=== PATIENT | female | born 1955 | race Caucasian/White ===

== ENCOUNTER 2020-02-06 15:56 | Inpatient (IN) | payer OTHER ==
[~2020-02-06] VITALS: Ht 165.1 cm; Wt 77.5 kg
[2020-02-06] MEDS ORDERED: PROPOFOL 10 MG/ML, 100ML IV ONE (16:25)
[2020-02-06] MEDS ORDERED: SUCCINYLCHOLINE 20 MG/ML, 10ML ONE (16:25)
[2020-02-06] MEDS ORDERED: ETOMIDATE 40 MG/20 ML ONE (16:25)
[2020-02-06] MEDS ORDERED: PROPOFOL 10 MG/ML, 20ML ONE (16:25)
--- NOTE | 2020-02-06 16:30 | NUR ---
LATE ENTRY: PLEASANT 64 FEMALE TRANSFERRED TO [facility] ED FROM [facility] FOR A POSITIVE COVID TEST AND INCREASED WOB/SOB/FEVER. PT ARRIVES TO [facility] ED ON A NON-REBREATHER MASK, WITH ADEQUATE OXYGEN SATURATION. VSS. PT DENIES MEDICAL HISTORY. FAREED JOHNSON, NOTIFIED OF PT CONDITION. BRANDY AT FOR PT HISTORY AND ASSESSMENT. PT EDUCATED ON ER PROCESS AND POC AND VERBALIZES UNDERSTANDING. CALL LIGHT IS WITHIN REACH OF PT AT THIS TIME. TECH PAGED FOR EKG OF PT.
--- NOTE | 2020-02-06 16:34 | NUR ---
XRAY AT AT THIS TIME.
[2020-02-06] MEDS ORDERED: CEFTRIAXONE PMX 1GM/50ML 50 ML ONE (16:43)
--- NOTE | 2020-02-06 16:51 | NUR ---
LAB AT TO DRAW BLOOD CULTURES X 2
[2020-02-06] MEDS ORDERED: AZITHROMYCIN 500 MG in SODIUM CHLORIDE 0.9% 250 ML IV SCH (17:00)
[2020-02-06] MEDS ORDERED: ONDANSETRON 2MG/ML, 2ML IVPush PRN (17:00)
[2020-02-06] MEDS ORDERED: LABETALOL 5MG/ML, 20ML IVPush PRN (17:00)
[2020-02-06] MEDS ORDERED: CEFTRIAXONE PMX 1GM/50ML 50 ML IV SCH (17:00)
[2020-02-06] MEDS ORDERED: BISACODYL 10 MG SUPP PR PRN (17:00)
[2020-02-06] MEDS ORDERED: ENALAPRILAT 1.25 MG/ML, 2ML IVPush PRN (17:00)
[2020-02-06] MEDS ORDERED: AZITHROMYCIN 500 MG in SODIUM CHLORIDE 0.9% 250 ML IV ONE (17:00)
[2020-02-06] MEDS ORDERED: POLYETHYLENE GLYCOL 17 GM PACKET PO PRN (17:00)
--- NOTE | 2020-02-06 17:08 | NUR ---
BC DRAWN X 2. IV ABX INITIATED PER MAR AT THIS TIME.
[2020-02-06 17:23] LABS: MEAN CORPUSCULAR HEMOGLOBIN 31.3 pg (27.0-34.8); MEAN CORPUSCULAR HGB CONC 33.3 g/dL (32.4-35.8); MEAN PLATELET VOLUME 8.3 fL (7.4-10.4); PLATELET COUNT 340 x10^3/uL (130-400); RED CELL DISTRIBUTION WIDTH 12.9 % (9.6-15.2)
--- NOTE | 2020-02-06 17:27 | NUR ---
PT RESTING IN [facility] AT THIS TIME WITH CALL LIGHT WITHIN REACH. PT IV ABX INFUSING PER MAR. PT DENIES ANY NEEDS AT THIS TIME.
[2020-02-06 17:32] LABS: MD YES
[2020-02-06 17:34] LABS: ALBUMIN 2.4 g/dL (3.4-5.0); ANION GAP 22 mmol/L (5-15); CALCIUM 9.2 mg/dL (8.5-10.1); CHLORIDE 94 mmol/L (98-107)
[2020-02-06 17:39] LABS: ALANINE AMINOTRANSFERASE 16 U/L (12-78); ALKALINE PHOSPHATASE 86 U/L (45-117); BILIRUBIN,TOTAL 0.7 mg/dL (0.2-1.0); CREATININE 0.76 mg/dL (0.55-1.02)
--- NOTE | 2020-02-06 17:40 | NUR ---
PT ASSISTED TO BSC AT THIS TIME.
--- NOTE | 2020-02-06 17:57 | NUR ---
DR HOOK NOTIFIED OF POTENTIAL NEED TO MOVE PT TO TRAUMA BAY FOR INTUBATION SECONDARY TO INCREASING WOB AND HYPOXIA. AWAITING RECOMMENDATIONS AT THIS TIME.
[2020-02-06] MEDS ORDERED: REMDESIVIR 200 MG in SODIUM CHLORIDE 0.9% 250 ML IVPB ONE (18:00)
[2020-02-06] MEDS ORDERED: CEFTRIAXONE PMX 1GM/50ML 50 ML IVPB ONE (18:00)
--- NOTE | 2020-02-06 18:03 | NUR ---
SPOKE WITH PHYSICIAN GENERAL INTERNAL MEDICINE DARRION Carrillo AND CHARGE TYLER ABOUT NEED TO MOVE PT TO INTUBATION ROOM. TRANSPORTING PT TO ROOM 39 FOR CENTRAL LINE PLACEMENT AND RSI.
[2020-02-06 18:13] LABS: BAND#(MANUAL) 1.88 x10^3/uL; BANDS%(MANUAL) 8 % (0-7); LYMPH#(MANUAL) 1.18 x10^3/uL (1-3.4); LYMPHS% (MANUAL) 5 % (22-44); MONOS#(MANUAL) 0.24 x10^3/uL (0.3-2.7); MONOS% (MANUAL) 1 % (2-9); SEG#(MANUAL) 20.21 x10^3/uL (1.8-6.8); SEGS% (MANUAL) 86 % (42-75)
[2020-02-06 18:14] LABS: <PLATELET ESTIMATE> ADEQUATE; <PLT MORPHOLOGY> NORMAL PLT MORPH; <RBC MORPHOLOGY> NORMAL; PMNS WITH VACUOLES 1+
[2020-02-06] MEDS ORDERED: ONDANSETRON 2MG/ML, 2ML ONE (19:15)
[2020-02-06] MEDS ORDERED: ONDANSETRON 2MG/ML, 2ML IVPush ONE (19:30)
[2020-02-06] MEDS ORDERED: ETOMIDATE 40 MG/20 ML IVPush ONE (19:30)
[2020-02-06] MEDS ORDERED: SUCCINYLCHOLINE 20 MG/ML, 10ML IVPush ONE (19:30)
[2020-02-06] MEDS ORDERED: PROPOFOL 100 ML IV PRN (19:30)
[2020-02-06] MEDS ORDERED: PROPOFOL 10 MG/ML, 20ML IVPush ONE (19:30)
--- NOTE | 2020-02-06 19:31 | NUR ---
LATE ENTRY: AT 1830 PT WAS MOVED FROM ED ROOM 26 TO ER ROOM 39 FOR CVC PLACEMENT AND INTUBATION. DR HOOK IS AT BS WITH CENTRAL LINE CART AND RSI KIT, ALONG WITH RT. CONSENT OBTAINED FOR PROCEDURE, AND PT VERBALIZES UNDERSTANDING OF NEED FOR VENTILATOR FOR RESPIRATORY ASSISTANCE. PT WAS INTUBATED WITH 20 MG OF ETOMIDATE AND 100 MG OF SUCC. PT WAS INTUBATED WITH GLIDESCOPE WITH 8.0 ET TUBE PLACED AT 21 CM AT THE LIP. LUNGS AUSCULTATED AND BREATH SOUNDS WERE CLEAR WITH EQUAL BILATERAL RISE AND FALL OF CHEST NOTED. A 16 THAI NG TUBE WAS PLACED AND ATTACHED TO STOMACH TO ASPIRATE STOMACH CONTENTS. PT ALSO RECEIVED 60 PROPOFOL IV PUSH OVER TWO SEPARATE BOLUSES FOR SEDATION. SOFT WRIST RESTRAINTS WERE APPLIED BILATERALLY FOR PT AND STAFF SAFETY. CASEY CATHETER WAS INSERTED PER UNIT POLICY WITH COLIN MONTESINOS AT BS TO VISUALIZE THAT THIS RN MAINTAINED STERILE FIELD. PT ATTACHED TO TEMPERATURE PROBE AT THIS TIME AND PT TEMP WAS PROVIDED FOR LAB. REPORT OF PT GIVEN TO COLIN MONTESINOS WHO IS ASSUMING CARE OF PT AT THIS TIME. XRAY AT BS FOR VISUAL VERIFICATION OF CORRECT CENTRAL LINE PLACEMENT.
[2020-02-06] MEDS ORDERED: DEXAMETHASONE 4 MG TABLET PO ONE (19:44)
--- NOTE | 2020-02-06 19:54 | NUR ---
LATE ENTRY D/T PT CARE: BEDSIDE REPORT FROM ROOSEVELT Greene RN. DR HOOK AT BEDSIDE PLACING R IJ TRIPLE LUMEN CENTRAL LINE. PT CURRENTLY SEDATED WITH PROPOFOL TO AFFECT. XRAY CONFIRMATION OBTAINED PRIOR TO USE OF CENTRAL LINE. NG PLACED IN L NARE. PLACEMENT CONFIRMED BY AUSCULTATION, ASPIRATION AND XRAY. ADDITIONAL PIV ACCESS OBTAINED. CASEY PLACED W GOOD UO; URINE YELLOW, NO SEDAMENT. CORE TMAX 100.2 WILL CONTINUE TO MONITOR. LAST TYLENOL SPEECH WRITER PER REPORT. SOFT RESTRAINTS PER ORDER. ABX INFUSED. NO S/S OF ABX RXN AT THIS TIME.
[2020-02-06] MEDS ORDERED: LIDOCAINE-MPF 1%, 2ML ENDO PRN (20:00)
[2020-02-06] MEDS ORDERED: PHARMACY MAY ADJ FOR RENAL FX MC SCH (20:00)
[2020-02-06] MEDS: PROPOFOL 100 ML IV PRN (20:01)
[2020-02-06] MEDS ORDERED: FENTANYL PF 100 MCG/2ML ONE ×2 (20:10→22:06)
[2020-02-06] MEDS: FENTANYL PF 100 MCG/2ML IVPush PRN ×2 (20:14→22:08)
--- NOTE | 2020-02-06 20:17 | NUR ---
PT MEDICATED WITH FENTANYL FOR AGITATION. PROPOFOL TITRATED FOR AFFECT
[2020-02-06] MEDS: DEXAMETHASONE 4 MG/ML, 1ML IV SCH ×2 (21:00→23:21)
--- NOTE | 2020-02-06 21:32 | NUR ---
DAUGHTER BIN AND SON BRANDY CALLED ED FOR UPDATE. UPDATED WITH GENERAL STATUS. DAUGHTER STATES THAT SHE WILL BE DRIVING TO [facility] TOMORROW. DAUGHTER AWARE THAT VISITORS ARE NOT ALLOWED ON COVID FLOOR AND DEMONSTRATES UNDERSTANDING. VSS. PT MOVING ALL EXTREMITIES INDEPENDENTLY, NO SPONTANEOUS EYE OPENING NOTED.
[2020-02-06] MEDS ORDERED: PROPOFOL 100 ML IV ONE (22:06)
--- NOTE | 2020-02-06 22:13 | NUR ---
PT PRE MEDICATED WITH FENTANYL PRIOR TO ORAL CARE. VSS.
[2020-02-06 22:54] LABS: MICROSCOPIC AUTO
--- NOTE | 2020-02-06 23:00 | NUR ---
HOSPITAL BED REQUESTED
[2020-02-06] MEDS ORDERED: DEXAMETHASONE 4 MG/ML, 1ML ONE (23:18)
[2020-02-06] MEDS ORDERED: FAMOTIDINE 20 MG/2 ML ONE (23:18)
[2020-02-06] MEDS: INSULIN LISPRO 100 UNITS/ML, PEN SQ-INSULIN SCH (23:20)
[2020-02-06] MEDS: FAMOTIDINE 20 MG/2 ML IVPush SCH (23:20)
[2020-02-06] MEDS ORDERED: ENOXAPARIN 80 MG/0.8 ML ONE (23:29)
[2020-02-06] MEDS: ENOXAPARIN 80 MG/0.8 ML SQ SCH (23:29)
--- NOTE | 2020-02-06 23:30 | NUR ---
PT MEDICATED PER EMAR. FSBS 429. PT MEDICATED PER PROTOCOL. LAB VERIFICATION OF BG ORDERED.
--- NOTE | 2020-02-07 00:50 | NUR ---
MESSAGE LEFT ON DR BOYD'S PHONE REGARDING FSBS. BG IMPROVED TO 405 ~30MIN POST INSULIN SQ INJECTION
[2020-02-07] MEDS ORDERED: FENTANYL PF 100 MCG/2ML ONE (01:14)
--- NOTE | 2020-02-07 01:30 | NUR ---
assumed care of pt. report from Sandra SHAW pt is currenty and ICU admission - HOLD pt was transfered here from outlying facility for increasing SOB D/T COVID +. pt has been intubated since admit and is currently sedated. pt has been trans[facility] to hospital bed with waffle mattress overlay pt is currenty sedated and resting calmly ST on monitor. no murmur noted on auscultation vent settings: A/C, rate 16, tidal Volume 500, PEEP of 5, O2 at 100% R lung coarse, L lung diminished. difficult to auscultate D/T body habitus active BS x4 quadrants. pt has NG tube in place to LCS with small amount of brown output cosme in place to drainage skin pale and intermittent diaphoresis, intact. no open wounds noted bilateral wrist restraints in place for safety. no family at bedside. lights dimmed for comfort
--- NOTE | 2020-02-07 01:55 | NUR ---
PT TRANSFERED TO HOSPITAL BED. REPORT TO COLIN MCCORMACK AND COLIN BELTRÁN.
[2020-02-07] MEDS: FENTANYL PF 100 MCG/2ML IVPush PRN (01:56)
--- NOTE | 2020-02-07 02:30 | NUR ---
no changes. pt resting in no apparent distress. awaiting bed assignment
--- NOTE | 2020-02-07 03:11 | NUR ---
PER DR BOYD, NO CTA AT THIS TIME. Addendum: 02/07/[address] BOYD AWARE OF FSBG AND CONFIRMS NO FURTHER ORDERS
--- NOTE | 2020-02-07 03:30 | NUR ---
pt positioning and turned for comfort. well tolerated. awaiting bed assignment
--- NOTE | 2020-02-07 04:40 | NUR ---
pt positioning for comfort. lights dimmed. sedation infusing. no apparent distress at this time
--- NOTE | 2020-02-07 05:30 | NUR ---
pt turned for positioning and comfort. resting calmly. no apaprnt distress noted at this time. awaiting bed assignment
[2020-02-07 05:53] LABS: D-DIMER 2.14 ug/mlFEU (0.00-0.52); INTERNATIONAL NORMALIZED RATIO 1.03 (0.93-1.1); PROTHROMBIN TIME 10.6 Seconds (9.6-11.5)
[2020-02-07 05:55] LABS: CALCIUM 9.3 mg/dL (8.5-10.1); CHLORIDE 100 mmol/L (98-107); MEAN CORPUSCULAR HEMOGLOBIN 31.7 pg (27.0-34.8); MEAN CORPUSCULAR HGB CONC 33.7 g/dL (32.4-35.8); MEAN PLATELET VOLUME 8.4 fL (7.4-10.4); PLATELET COUNT 300 x10^3/uL (130-400); RED BLOOD COUNT 4.97 x10^6/uL (3.82-5.3)
[2020-02-07 06:01] LABS: ALANINE AMINOTRANSFERASE 14 U/L (12-78); ALBUMIN 2.3 g/dL (3.4-5.0); ALKALINE PHOSPHATASE 82 U/L (45-117); ANION GAP 18 mmol/L (5-15); BILIRUBIN,TOTAL 0.5 mg/dL (0.2-1.0); CREATININE 0.77 mg/dL (0.55-1.02); TOTAL PROTEIN 7.6 g/dL (6.4-8.2)
--- NOTE | 2020-02-07 06:30 | NUR ---
pt has self-extubated. RT at bedside. BVM initiated. Dr. Larson notified and pt to be re-intubated
[2020-02-07 06:53] LABS: MD YES
[2020-02-07 06:54] LABS: BAND#(MANUAL) 1.57 x10^3/uL; BANDS%(MANUAL) 8 % (0-7); LYMPH#(MANUAL) 0.78 x10^3/uL (1-3.4); LYMPHS% (MANUAL) 4 % (22-44); MONOS#(MANUAL) 0.59 x10^3/uL (0.3-2.7); MONOS% (MANUAL) 3 % (2-9); SEG#(MANUAL) 16.66 x10^3/uL (1.8-6.8); SEGS% (MANUAL) 85 % (42-75)
[2020-02-07 06:55] LABS: <PLATELET ESTIMATE> ADEQUATE; <PLT MORPHOLOGY> NORMAL PLT MORPH; <RBC MORPHOLOGY> NORMAL; PMNS WITH VACUOLES 1+; TOXIC GRAN 1+
--- NOTE | 2020-02-07 07:00 | NUR ---
bedside report to Elvis SHAW. awaiting bed assignment
--- NOTE | 2020-02-07 08:34 | NUR ---
Note jose in EDM - 02/07/20 at 0835 by ROHINI TOOK REPORT AT 0700. CENTRAL LINE PUT IN BY MD KAUFMAN. 16 G OP PUT IN, ON LOW CONT SUCTION. 16 G CASEY PUT IN WITH 500 URINE OUT.
--- NOTE | 2020-02-07 08:36 | NUR ---
AT 0710 PT EXTUBATED HERSELF, RT IN ROOM WITH A BAG MASK. MD KAUFMAN NOTIFIED. 8.0 ET TUBE PUT IN. PT REPOSITIONED. RESTRAINTS ADJUSTED. PROPOFOL ADJUSTED PER MANDEEP.
[2020-02-07] MEDS: SENNA/DOCUSATE TABLET PO SCH (09:00)
[2020-02-07] MEDS: FAMOTIDINE 20 MG/2 ML IVPush SCH ×2 (09:00→21:30)
[2020-02-07] MEDS: CHOLECALCIFEROL 5,000u TAB PO SCH (09:00)
[2020-02-07] MEDS: ASCORBIC ACID 500 MG TABLET PO SCH ×3 (10:26→16:50)
[2020-02-07] MEDS: Enoxaparin 1 mg/kg protocol SQ SCH ×3 (10:26→17:00)
[2020-02-07] MEDS: ZINC SULFATE 220 MG CAPSULE PO SCH (10:27)
[2020-02-07] MEDS: DEXAMETHASONE 4 MG/ML, 1ML IV SCH (10:28)
[2020-02-07] MEDS: INSULIN LISPRO 100 UNITS/ML, PEN SQ-INSULIN SCH ×4 (10:29→21:39)
[2020-02-07] MEDS ORDERED: SUCCINYLCHOLINE 20 MG/ML, 10ML ONE (11:02)
[2020-02-07] MEDS ORDERED: ETOMIDATE 20 MG/10 ML ONE (11:02)
[2020-02-07] MEDS: FENTANYL PF 1,000 MCG in SODIUM CHLORIDE 0.9% 80 ML IV PRN (11:26)
[2020-02-07] MEDS: ENOXAPARIN 80 MG/0.8 ML SQ SCH ×2 (11:27→21:30)
[2020-02-07] MEDS: PROPOFOL 100 ML IV PRN ×3 (12:24→21:30)
[2020-02-07 12:49] VITALS: BP 130/78
[2020-02-07] MEDS: CEFTRIAXONE PMX 1GM/50ML 50 ML IV SCH (14:37)
[2020-02-07] MEDS: AZITHROMYCIN 500 MG in SODIUM CHLORIDE 0.9% 250 ML IV SCH (16:51)
[2020-02-07] MEDS: REMDESIVIR 100 MG in SODIUM CHLORIDE 0.9% 250 ML IVPB SCH (17:59)
[2020-02-07] MEDS: THIAMINE 100 MG in SODIUM CHLORIDE 0.9% 50 ML IV SCH (21:30)
[2020-02-08] MEDS: PROPOFOL 100 ML IV PRN ×5 (02:10→23:26)
[2020-02-08] MEDS: INSULIN LISPRO 100 UNITS/ML, PEN SQ-INSULIN SCH ×4 (03:38→20:25)
[2020-02-08 04:15] VITALS: BP 101/61
[2020-02-08 04:38] LABS: BASOPHILS % (AUTO) 1 % (0-1); EOSINOPHILS % (AUTO) 0 % (1-7); LYMPHOCYTES % (AUTO) 5 % (22-44); MEAN CORPUSCULAR HEMOGLOBIN 31.6 pg (27.0-34.8); MEAN CORPUSCULAR HGB CONC 33.7 g/dL (32.4-35.8); MEAN PLATELET VOLUME 8.3 fL (7.4-10.4); MONOCYTES % (AUTO) 4 % (2-9); NEUTROPHILS % (AUTO) 90 % (42-75); PLATELET COUNT 290 x10^3/uL (130-400); RED BLOOD COUNT 4.69 x10^6/uL (3.82-5.3); RED CELL DISTRIBUTION WIDTH 12.9 % (9.6-15.2)
[2020-02-08] MEDS: Enoxaparin 1 mg/kg protocol SQ SCH ×2 (05:00→16:08)
[2020-02-08 05:46] LABS: MD SCAN
[2020-02-08] MEDS: CHOLECALCIFEROL 5,000u TAB PO SCH (08:01)
[2020-02-08] MEDS: SENNA/DOCUSATE TABLET PO SCH (08:01)
[2020-02-08] MEDS: DEXAMETHASONE 4 MG/ML, 1ML IV SCH (08:01)
[2020-02-08] MEDS: ASCORBIC ACID 500 MG TABLET PO SCH ×2 (08:01→16:12)
[2020-02-08] MEDS: FAMOTIDINE 20 MG/2 ML IVPush SCH ×2 (08:01→20:24)
[2020-02-08] MEDS: ZINC SULFATE 220 MG CAPSULE PO SCH (08:01)
[2020-02-08 09:45] LABS: ALANINE AMINOTRANSFERASE 13 U/L (12-78); ANION GAP 8 mmol/L (5-15); CALCIUM 9.4 mg/dL (8.5-10.1); CHLORIDE 107 mmol/L (98-107); CREATININE 0.83 mg/dL (0.55-1.02)
[2020-02-08 09:48] LABS: ALKALINE PHOSPHATASE 76 U/L (45-117); BILIRUBIN,TOTAL 0.4 mg/dL (0.2-1.0)
[2020-02-08] MEDS: CEFTRIAXONE PMX 1GM/50ML 50 ML IV SCH (10:40)
[2020-02-08] MEDS: ENOXAPARIN 80 MG/0.8 ML SQ SCH ×2 (10:40→23:25)
[2020-02-08] MEDS: INSULIN GLARGINE 100 UNITS/ML, PEN SQ-INSULIN SCH ×2 (11:15→20:25)
[2020-02-08] MEDS: ACETAMINOPHEN 325 MG TABLET PO PRN (12:07)
[2020-02-08] MEDS: AZITHROMYCIN 500 MG in SODIUM CHLORIDE 0.9% 250 ML IV SCH (16:12)
[2020-02-08] MEDS: FENTANYL PF 1,000 MCG in SODIUM CHLORIDE 0.9% 80 ML IV PRN (17:42)
[2020-02-08] MEDS: REMDESIVIR 100 MG in SODIUM CHLORIDE 0.9% 250 ML IVPB SCH (17:42)
[2020-02-08] MEDS: THIAMINE 100 MG in SODIUM CHLORIDE 0.9% 50 ML IV SCH (20:24)
[2020-02-09 04:00] VITALS: BP 104/62
[2020-02-09] MEDS: INSULIN LISPRO 100 UNITS/ML, PEN SQ-INSULIN SCH ×4 (04:08→22:02)
[2020-02-09] MEDS: PROPOFOL 100 ML IV PRN ×5 (04:10→21:54)
[2020-02-09 04:45] LABS: BASOPHILS % (AUTO) 1 % (0-1); EOSINOPHILS % (AUTO) 0 % (1-7); LYMPHOCYTES % (AUTO) 10 % (22-44); MEAN CORPUSCULAR HGB CONC 32.8 g/dL (32.4-35.8); MEAN PLATELET VOLUME 8.9 fL (7.4-10.4); MONOCYTES % (AUTO) 9 % (2-9); NEUTROPHILS % (AUTO) 81 % (42-75); PLATELET COUNT 280 x10^3/uL (130-400); RED BLOOD COUNT 4.39 x10^6/uL (3.82-5.3); RED CELL DISTRIBUTION WIDTH 13.1 % (9.6-15.2)
[2020-02-09 04:49] LABS: MD NO
[2020-02-09 04:50] LABS: TRIGLYCERIDES 182 mg/dL (50-200)
[2020-02-09 04:54] LABS: D-DIMER 0.79 ug/mlFEU (0.00-0.52); INTERNATIONAL NORMALIZED RATIO 1.04 (0.93-1.1); PROTHROMBIN TIME 10.7 Seconds (9.6-11.5)
[2020-02-09] MEDS: Enoxaparin 1 mg/kg protocol SQ SCH (05:00)
[2020-02-09 05:06] LABS: C-REACTIVE PROTEIN, QUANT 8.33 mg/dL (0.02-0.49)
[2020-02-09] MEDS: CHOLECALCIFEROL 5,000u TAB PO SCH (08:02)
[2020-02-09] MEDS: ZINC SULFATE 220 MG CAPSULE PO SCH (08:02)
[2020-02-09] MEDS: ASCORBIC ACID 500 MG TABLET PO SCH ×2 (08:02→17:39)
[2020-02-09] MEDS: DEXAMETHASONE 4 MG/ML, 1ML IV SCH (08:02)
[2020-02-09] MEDS: FAMOTIDINE 20 MG/2 ML IVPush SCH ×2 (08:03→21:54)
[2020-02-09] MEDS: SENNA/DOCUSATE TABLET PO SCH (08:03)
[2020-02-09] MEDS: INSULIN GLARGINE 100 UNITS/ML, PEN SQ-INSULIN SCH ×2 (11:02→22:03)
[2020-02-09 11:24] LABS: ALANINE AMINOTRANSFERASE 12 U/L (12-78); ALBUMIN 1.9 g/dL (3.4-5.0); ANION GAP 6 mmol/L (5-15); CHLORIDE 109 mmol/L (98-107); CREATININE 0.64 mg/dL (0.55-1.02)
[2020-02-09 11:26] LABS: ALKALINE PHOSPHATASE 64 U/L (45-117); BILIRUBIN,TOTAL 0.4 mg/dL (0.2-1.0); TOTAL PROTEIN 6.8 g/dL (6.4-8.2)
[2020-02-09] MEDS: ENOXAPARIN 80 MG/0.8 ML SQ SCH (11:42)
[2020-02-09] MEDS: CEFTRIAXONE PMX 1GM/50ML 50 ML IV SCH (11:43)
[2020-02-09] MEDS: AZITHROMYCIN 500 MG in SODIUM CHLORIDE 0.9% 250 ML IV SCH (17:39)
[2020-02-09] MEDS: REMDESIVIR 100 MG in SODIUM CHLORIDE 0.9% 250 ML IVPB SCH (17:39)
[2020-02-09] MEDS: THIAMINE 100 MG in SODIUM CHLORIDE 0.9% 50 ML IV SCH (20:20)
[2020-02-10] MEDS: PROPOFOL 100 ML IV PRN ×4 (03:16→18:37)
[2020-02-10] MEDS: FENTANYL PF 1,000 MCG in SODIUM CHLORIDE 0.9% 80 ML IV PRN (03:16)
[2020-02-10 03:56] LABS: ALBUMIN 1.9 g/dL (3.4-5.0); ANION GAP 3 mmol/L (5-15); CALCIUM 8.7 mg/dL (8.5-10.1); CHLORIDE 110 mmol/L (98-107)
[2020-02-10 04:00] LABS: MEAN CORPUSCULAR HEMOGLOBIN 31.2 pg (27.0-34.8); MEAN PLATELET VOLUME 8.7 fL (7.4-10.4); PLATELET COUNT 309 x10^3/uL (130-400); RED BLOOD COUNT 4.38 x10^6/uL (3.82-5.3); RED CELL DISTRIBUTION WIDTH 13.1 % (9.6-15.2)
[2020-02-10 04:01] LABS: ALANINE AMINOTRANSFERASE 16 U/L (12-78); ALKALINE PHOSPHATASE 58 U/L (45-117); BILIRUBIN,TOTAL 0.4 mg/dL (0.2-1.0); TOTAL PROTEIN 6.8 g/dL (6.4-8.2)
[2020-02-10] MEDS: INSULIN LISPRO 100 UNITS/ML, PEN SQ-INSULIN SCH ×4 (04:09→20:03)
[2020-02-10 04:12] VITALS: BP 125/64
[2020-02-10 04:27] LABS: MD YES
[2020-02-10 04:29] LABS: BAND#(MANUAL) 0.11 x10^3/uL; BANDS%(MANUAL) 1 % (0-7); LYMPH#(MANUAL) 1.82 x10^3/uL (1-3.4); LYMPHS% (MANUAL) 17 % (22-44); MONOS#(MANUAL) 0.64 x10^3/uL (0.3-2.7); MONOS% (MANUAL) 6 % (2-9); MYELOCYTES# (MANUAL) 0.21 x10^3/uL (0-0); MYELOCYTES% (MANUAL) 2 % (0-0); SEG#(MANUAL) 7.92 x10^3/uL (1.8-6.8); SEGS% (MANUAL) 74 % (42-75)
[2020-02-10 04:30] LABS: <PLATELET ESTIMATE> ADEQUATE; <PLT MORPHOLOGY> NORMAL PLT MORPH; <RBC MORPHOLOGY> NORMAL
[2020-02-10] MEDS: SENNA/DOCUSATE TABLET PO SCH (09:26)
[2020-02-10] MEDS: ASCORBIC ACID 500 MG TABLET PO SCH ×2 (09:26→17:42)
[2020-02-10] MEDS: CHOLECALCIFEROL 5,000u TAB PO SCH (09:26)
[2020-02-10] MEDS: ENOXAPARIN 40 MG/0.4 ML SQ SCH (09:26)
[2020-02-10] MEDS: DEXAMETHASONE 4 MG/ML, 1ML IV SCH (09:26)
[2020-02-10] MEDS: ZINC SULFATE 220 MG CAPSULE PO SCH (09:26)
[2020-02-10] MEDS: FAMOTIDINE 20 MG/2 ML IVPush SCH ×2 (09:27→20:01)
[2020-02-10] MEDS: INSULIN GLARGINE 100 UNITS/ML, PEN SQ-INSULIN SCH ×2 (09:28→20:02)
[2020-02-10] MEDS: CEFTRIAXONE PMX 1GM/50ML 50 ML IV SCH (12:04)
[2020-02-10] MEDS: ACETAMINOPHEN 325 MG TABLET PO PRN (17:41)
[2020-02-10] MEDS: REMDESIVIR 100 MG in SODIUM CHLORIDE 0.9% 250 ML IVPB SCH (18:37)
[2020-02-10] MEDS: THIAMINE 100 MG in SODIUM CHLORIDE 0.9% 50 ML IV SCH (19:45)
[2020-02-11] MEDS: PROPOFOL 100 ML IV PRN ×3 (02:56→16:42)
[2020-02-11] MEDS: INSULIN LISPRO 100 UNITS/ML, PEN SQ-INSULIN SCH ×4 (02:57→20:24)
[2020-02-11 04:00] VITALS: BP 132/72
[2020-02-11 05:41] LABS: ALANINE AMINOTRANSFERASE 22 U/L (12-78); ALBUMIN 1.8 g/dL (3.4-5.0); CALCIUM 8.9 mg/dL (8.5-10.1); CREATININE 0.63 mg/dL (0.55-1.02)
[2020-02-11 05:43] LABS: ALKALINE PHOSPHATASE 62 U/L (45-117); BILIRUBIN,TOTAL 0.4 mg/dL (0.2-1.0); TOTAL PROTEIN 6.7 g/dL (6.4-8.2)
[2020-02-11 05:46] LABS: BASOPHILS % (AUTO) 1 % (0-1); EOSINOPHILS % (AUTO) 0 % (1-7); LYMPHOCYTES % (AUTO) 7 % (22-44); MEAN CORPUSCULAR HEMOGLOBIN 31.5 pg (27.0-34.8); MEAN PLATELET VOLUME 8.6 fL (7.4-10.4); MONOCYTES % (AUTO) 6 % (2-9); NEUTROPHILS % (AUTO) 86 % (42-75); PLATELET COUNT 286 x10^3/uL (130-400); RED BLOOD COUNT 4.25 x10^6/uL (3.82-5.3)
[2020-02-11] MEDS: FENTANYL PF 1,000 MCG in SODIUM CHLORIDE 0.9% 80 ML IV PRN (06:08)
[2020-02-11 06:18] LABS: ANION GAP 4 mmol/L (5-15); CHLORIDE 108 mmol/L (98-107)
[2020-02-11 06:23] LABS: MD SCAN
[2020-02-11] MEDS: DEXAMETHASONE 4 MG/ML, 1ML IV SCH (08:43)
[2020-02-11] MEDS: CHOLECALCIFEROL 5,000u TAB PO SCH (08:45)
[2020-02-11] MEDS: ASCORBIC ACID 500 MG TABLET PO SCH ×2 (08:45→16:42)
[2020-02-11] MEDS: SENNA/DOCUSATE TABLET PO SCH (08:45)
[2020-02-11] MEDS: ZINC SULFATE 220 MG CAPSULE PO SCH (08:46)
[2020-02-11] MEDS: FAMOTIDINE 20 MG/2 ML IVPush SCH ×2 (08:46→20:25)
[2020-02-11] MEDS: ENOXAPARIN 40 MG/0.4 ML SQ SCH (08:51)
[2020-02-11] MEDS: INSULIN GLARGINE 100 UNITS/ML, PEN SQ-INSULIN SCH ×2 (08:54→20:24)
[2020-02-11] MEDS: CEFTRIAXONE PMX 1GM/50ML 50 ML IV SCH (12:34)
[2020-02-11] MEDS: ACETAMINOPHEN 325 MG TABLET PO PRN ×2 (15:24→23:04)
[2020-02-11] MEDS: REMDESIVIR 100 MG in SODIUM CHLORIDE 0.9% 250 ML IVPB SCH (17:34)
[2020-02-11] MEDS: THIAMINE 100 MG in SODIUM CHLORIDE 0.9% 50 ML IV SCH (20:06)
[2020-02-11] MEDS ORDERED: ALBUTEROL SULFATE 2.5 MG/3 ML ONE (22:55)
[2020-02-12] MEDS: PROPOFOL 100 ML IV PRN ×3 (00:45→17:49)
[2020-02-12 04:00] VITALS: BP 150/87
[2020-02-12 05:12] LABS: BASOPHILS % (AUTO) 0 % (0-1); EOSINOPHILS % (AUTO) 1 % (1-7); LYMPHOCYTES % (AUTO) 8 % (22-44); MEAN CORPUSCULAR HEMOGLOBIN 31.2 pg (27.0-34.8); MEAN CORPUSCULAR HGB CONC 33.1 g/dL (32.4-35.8); MEAN PLATELET VOLUME 8.6 fL (7.4-10.4); MONOCYTES % (AUTO) 6 % (2-9); NEUTROPHILS % (AUTO) 84 % (42-75); PLATELET COUNT 280 x10^3/uL (130-400); RED BLOOD COUNT 4.11 x10^6/uL (3.82-5.3); RED CELL DISTRIBUTION WIDTH 13.3 % (9.6-15.2)
[2020-02-12 05:13] LABS: MD NO
[2020-02-12 05:19] LABS: ALANINE AMINOTRANSFERASE 31 U/L (12-78); ALBUMIN 1.7 g/dL (3.4-5.0); ANION GAP 4 mmol/L (5-15); CALCIUM 8.5 mg/dL (8.5-10.1); CHLORIDE 104 mmol/L (98-107); CREATININE 0.55 mg/dL (0.55-1.02)
[2020-02-12 05:22] LABS: ALKALINE PHOSPHATASE 59 U/L (45-117); BILIRUBIN,TOTAL 0.5 mg/dL (0.2-1.0); TOTAL PROTEIN 6.7 g/dL (6.4-8.2)
[2020-02-12] MEDS: INSULIN LISPRO 100 UNITS/ML, PEN SQ-INSULIN SCH ×4 (05:51→21:21)
[2020-02-12] MEDS: CHOLECALCIFEROL 5,000u TAB PO SCH (08:33)
[2020-02-12] MEDS: DEXAMETHASONE 4 MG/ML, 1ML IV SCH (08:33)
[2020-02-12] MEDS: ASCORBIC ACID 500 MG TABLET PO SCH ×2 (08:33→17:50)
[2020-02-12] MEDS: FAMOTIDINE 20 MG/2 ML IVPush SCH ×2 (08:33→21:19)
[2020-02-12] MEDS: SENNA/DOCUSATE TABLET PO SCH (08:33)
[2020-02-12] MEDS: ZINC SULFATE 220 MG CAPSULE PO SCH (08:34)
[2020-02-12] MEDS: ENOXAPARIN 40 MG/0.4 ML SQ SCH (08:34)
[2020-02-12] MEDS: INSULIN GLARGINE 100 UNITS/ML, PEN SQ-INSULIN SCH ×2 (08:36→21:20)
[2020-02-12] MEDS: CEFTRIAXONE PMX 1GM/50ML 50 ML IV SCH (11:06)
[2020-02-12] MEDS: ACETAMINOPHEN 325 MG TABLET PO PRN (15:08)
[2020-02-12] MEDS: REMDESIVIR 100 MG in SODIUM CHLORIDE 0.9% 250 ML IVPB SCH (17:52)
[2020-02-12] MEDS: THIAMINE 100 MG in SODIUM CHLORIDE 0.9% 50 ML IV SCH (21:19)
[2020-02-12] MEDS: IBUPROFEN 200 MG TABLET PO PRN (23:38)
[2020-02-13] MEDS: PROPOFOL 100 ML IV PRN ×3 (03:21→22:08)
[2020-02-13 04:00] VITALS: BP 146/78
[2020-02-13 04:14] LABS: BASOPHILS % (AUTO) 1 % (0-1); EOSINOPHILS % (AUTO) 1 % (1-7); LYMPHOCYTES % (AUTO) 10 % (22-44); MD NO; MEAN CORPUSCULAR HEMOGLOBIN 31.5 pg (27.0-34.8); MEAN CORPUSCULAR HGB CONC 33.2 g/dL (32.4-35.8); MEAN PLATELET VOLUME 8.6 fL (7.4-10.4); MONOCYTES % (AUTO) 7 % (2-9); NEUTROPHILS % (AUTO) 81 % (42-75); PLATELET COUNT 270 x10^3/uL (130-400); RED BLOOD COUNT 4.05 x10^6/uL (3.82-5.3); RED CELL DISTRIBUTION WIDTH 12.9 % (9.6-15.2)
[2020-02-13 04:23] LABS: INTERNATIONAL NORMALIZED RATIO 1.02 (0.93-1.1); PROTHROMBIN TIME 10.5 Seconds (9.6-11.5)
[2020-02-13 04:27] LABS: ALANINE AMINOTRANSFERASE 31 U/L (12-78); ALBUMIN 1.8 g/dL (3.4-5.0); CREATININE 0.54 mg/dL (0.55-1.02)
[2020-02-13 04:29] LABS: ALKALINE PHOSPHATASE 58 U/L (45-117); BILIRUBIN,TOTAL 0.4 mg/dL (0.2-1.0); TOTAL PROTEIN 6.8 g/dL (6.4-8.2)
[2020-02-13 04:40] LABS: ANION GAP 5 mmol/L (5-15); CHLORIDE 106 mmol/L (98-107)
[2020-02-13] MEDS: INSULIN LISPRO 100 UNITS/ML, PEN SQ-INSULIN SCH ×4 (05:17→20:32)
[2020-02-13] MEDS: FENTANYL PF 1,000 MCG in SODIUM CHLORIDE 0.9% 80 ML IV PRN (05:20)
[2020-02-13] MEDS: DEXAMETHASONE 4 MG/ML, 1ML IV SCH (08:33)
[2020-02-13] MEDS: ASCORBIC ACID 500 MG TABLET PO SCH ×2 (08:34→18:23)
[2020-02-13] MEDS: ENOXAPARIN 40 MG/0.4 ML SQ SCH (08:34)
[2020-02-13] MEDS: SENNA/DOCUSATE TABLET PO SCH (08:35)
[2020-02-13] MEDS: ZINC SULFATE 220 MG CAPSULE PO SCH (08:35)
[2020-02-13] MEDS: CHOLECALCIFEROL 5,000u TAB PO SCH (08:35)
[2020-02-13] MEDS: FAMOTIDINE 20 MG/2 ML IVPush SCH ×2 (08:35→20:31)
[2020-02-13] MEDS: INSULIN GLARGINE 100 UNITS/ML, PEN SQ-INSULIN SCH ×2 (08:39→20:33)
[2020-02-13] MEDS: CEFTRIAXONE PMX 1GM/50ML 50 ML IV SCH (11:08)
[2020-02-13] MEDS: IBUPROFEN 200 MG TABLET PO PRN (15:04)
[2020-02-13] MEDS: REMDESIVIR 100 MG in SODIUM CHLORIDE 0.9% 250 ML IVPB SCH (18:23)
[2020-02-13] MEDS: THIAMINE 100 MG in SODIUM CHLORIDE 0.9% 50 ML IV SCH (20:31)
[2020-02-14] MEDS: INSULIN LISPRO 100 UNITS/ML, PEN SQ-INSULIN SCH ×4 (03:38→20:24)
[2020-02-14 03:55] LABS: BASOPHILS % (AUTO) 1 % (0-1); EOSINOPHILS % (AUTO) 1 % (1-7); LYMPHOCYTES % (AUTO) 15 % (22-44); MEAN CORPUSCULAR HEMOGLOBIN 31.1 pg (27.0-34.8); MEAN CORPUSCULAR HGB CONC 32.8 g/dL (32.4-35.8); MEAN PLATELET VOLUME 8.7 fL (7.4-10.4); MONOCYTES % (AUTO) 9 % (2-9); NEUTROPHILS % (AUTO) 75 % (42-75); PLATELET COUNT 257 x10^3/uL (130-400); RED BLOOD COUNT 3.88 x10^6/uL (3.82-5.3)
[2020-02-14 04:00] VITALS: BP 144/81
[2020-02-14 04:01] LABS: ALANINE AMINOTRANSFERASE 27 U/L (12-78); ALBUMIN 1.7 g/dL (3.4-5.0); ANION GAP 1 mmol/L (5-15); CALCIUM 8.3 mg/dL (8.5-10.1); CHLORIDE 105 mmol/L (98-107)
[2020-02-14 04:03] LABS: ALKALINE PHOSPHATASE 54 U/L (45-117); BILIRUBIN,TOTAL 0.4 mg/dL (0.2-1.0); TOTAL PROTEIN 6.4 g/dL (6.4-8.2)
[2020-02-14 04:12] LABS: MD NO
[2020-02-14] MEDS: PROPOFOL 100 ML IV PRN (06:16)
[2020-02-14] MEDS: SENNA/DOCUSATE TABLET PO SCH (09:00)
[2020-02-14] MEDS: ASCORBIC ACID 500 MG TABLET PO SCH ×2 (09:06→18:06)
[2020-02-14] MEDS: DEXAMETHASONE 4 MG/ML, 1ML IV SCH (09:07)
[2020-02-14] MEDS: ZINC SULFATE 220 MG CAPSULE PO SCH (09:07)
[2020-02-14] MEDS: ENOXAPARIN 40 MG/0.4 ML SQ SCH (09:07)
[2020-02-14] MEDS: CHOLECALCIFEROL 5,000u TAB PO SCH (09:07)
[2020-02-14] MEDS: FAMOTIDINE 20 MG/2 ML IVPush SCH ×2 (09:08→20:22)
[2020-02-14] MEDS: INSULIN GLARGINE 100 UNITS/ML, PEN SQ-INSULIN SCH ×2 (09:09→20:23)
[2020-02-14] MEDS: FENTANYL PF 1,000 MCG in SODIUM CHLORIDE 0.9% 80 ML IV PRN (10:33)
[2020-02-14] MEDS ORDERED: LACTATED RINGERS 500 ML IV ONE (12:00)
[2020-02-14] MEDS: REMDESIVIR 100 MG in SODIUM CHLORIDE 0.9% 250 ML IVPB SCH (18:06)
[2020-02-14] MEDS: THIAMINE 100 MG in SODIUM CHLORIDE 0.9% 50 ML IV SCH (20:22)
[2020-02-15 04:00] VITALS: BP 129/72
[2020-02-15] MEDS: PROPOFOL 100 ML IV PRN (04:07)
[2020-02-15] MEDS: INSULIN LISPRO 100 UNITS/ML, PEN SQ-INSULIN SCH ×4 (04:14→20:55)
[2020-02-15 04:55] LABS: BASOPHILS % (AUTO) 0 % (0-1); EOSINOPHILS % (AUTO) 1 % (1-7); LYMPHOCYTES % (AUTO) 14 % (22-44); MEAN CORPUSCULAR HEMOGLOBIN 31.6 pg (27.0-34.8); MEAN CORPUSCULAR HGB CONC 33.3 g/dL (32.4-35.8); MEAN PLATELET VOLUME 9.2 fL (7.4-10.4); MONOCYTES % (AUTO) 7 % (2-9); NEUTROPHILS % (AUTO) 78 % (42-75); PLATELET COUNT 259 x10^3/uL (130-400); RED BLOOD COUNT 3.99 x10^6/uL (3.82-5.3); RED CELL DISTRIBUTION WIDTH 13.2 % (9.6-15.2)
[2020-02-15 04:56] LABS: MD NO
[2020-02-15 05:09] LABS: CHLORIDE 105 mmol/L (98-107)
[2020-02-15 05:16] LABS: ALANINE AMINOTRANSFERASE 28 U/L (12-78); ALBUMIN 1.8 g/dL (3.4-5.0); ALKALINE PHOSPHATASE 65 U/L (45-117); ANION GAP 2 mmol/L (5-15); BILIRUBIN,TOTAL 0.4 mg/dL (0.2-1.0); CALCIUM 8.2 mg/dL (8.5-10.1); CREATININE 0.44 mg/dL (0.55-1.02); TOTAL PROTEIN 6.6 g/dL (6.4-8.2); TRIGLYCERIDES 172 mg/dL (50-200)
[2020-02-15] MEDS: DEXAMETHASONE 4 MG/ML, 1ML IV SCH (08:00)
[2020-02-15] MEDS: ENOXAPARIN 40 MG/0.4 ML SQ SCH (08:00)
[2020-02-15] MEDS: ASCORBIC ACID 500 MG TABLET PO SCH ×2 (08:00→17:01)
[2020-02-15] MEDS ORDERED: INSULIN GLARGINE 100 UNITS/ML, PEN SQ-INSULIN SCH (09:00)
[2020-02-15] MEDS: FAMOTIDINE 20 MG/2 ML IVPush SCH ×2 (09:00→20:53)
[2020-02-15] MEDS ORDERED: LACTATED RINGERS 500 ML IV SCH (10:00)
[2020-02-15] MEDS ORDERED: POTASSIUM CHLORIDE 10% 20 MEQ/15 ML UDC PO ONE (10:00)
[2020-02-15] MEDS: ZINC SULFATE 220 MG CAPSULE PO SCH (10:29)
[2020-02-15] MEDS: CHOLECALCIFEROL 5,000u TAB PO SCH (10:29)
[2020-02-15] MEDS: SENNA/DOCUSATE TABLET PO SCH (10:29)
[2020-02-15] MEDS: REMDESIVIR 100 MG in SODIUM CHLORIDE 0.9% 250 ML IVPB SCH (17:01)
[2020-02-15] MEDS: THIAMINE 100 MG in SODIUM CHLORIDE 0.9% 50 ML IV SCH (20:53)
[2020-02-15] MEDS: INSULIN GLARGINE 100 UNITS/ML, PEN SQ-INSULIN SCH (20:54)
[2020-02-16 04:00] VITALS: BP 115/66
[2020-02-16] MEDS: INSULIN LISPRO 100 UNITS/ML, PEN SQ-INSULIN SCH ×4 (04:48→21:55)
[2020-02-16 05:16] LABS: BASOPHILS % (AUTO) 0 % (0-1); EOSINOPHILS % (AUTO) 0 % (1-7); LYMPHOCYTES % (AUTO) 13 % (22-44); MEAN CORPUSCULAR HEMOGLOBIN 31.4 pg (27.0-34.8); MEAN PLATELET VOLUME 8.8 fL (7.4-10.4); MONOCYTES % (AUTO) 7 % (2-9); NEUTROPHILS % (AUTO) 80 % (42-75); PLATELET COUNT 246 x10^3/uL (130-400); RED BLOOD COUNT 4.04 x10^6/uL (3.82-5.3); RED CELL DISTRIBUTION WIDTH 13.1 % (9.6-15.2)
[2020-02-16 05:23] LABS: MD NO
[2020-02-16 05:26] LABS: ANION GAP 3 mmol/L (5-15); CALCIUM 8.4 mg/dL (8.5-10.1); CHLORIDE 105 mmol/L (98-107)
[2020-02-16 05:27] LABS: CREATININE 0.32 mg/dL (0.55-1.02)
[2020-02-16] MEDS: ENOXAPARIN 40 MG/0.4 ML SQ SCH (09:06)
[2020-02-16] MEDS: ASCORBIC ACID 500 MG TABLET PO SCH ×2 (09:07→17:37)
[2020-02-16] MEDS: CHOLECALCIFEROL 5,000u TAB PO SCH (09:07)
[2020-02-16] MEDS: DEXAMETHASONE 4 MG/ML, 1ML IV SCH (09:07)
[2020-02-16] MEDS: FAMOTIDINE 20 MG/2 ML IVPush SCH ×2 (09:07→21:51)
[2020-02-16] MEDS: ZINC SULFATE 220 MG CAPSULE PO SCH (09:07)
[2020-02-16] MEDS: INSULIN GLARGINE 100 UNITS/ML, PEN SQ-INSULIN SCH ×2 (09:12→21:55)
[2020-02-16] MEDS: SENNA/DOCUSATE TABLET PO SCH (09:42)
[2020-02-16] MEDS ORDERED: MELATONIN 5 MG TABLET PO PRN (10:00)
[2020-02-16] MEDS: THIAMINE 100 MG in SODIUM CHLORIDE 0.9% 50 ML IV SCH (21:51)
[2020-02-17] MEDS: INSULIN LISPRO 100 UNITS/ML, PEN SQ-INSULIN SCH ×4 (03:09→21:22)
[2020-02-17 04:24] LABS: BASOPHILS % (AUTO) 1 % (0-1); EOSINOPHILS % (AUTO) 0 % (1-7); LYMPHOCYTES % (AUTO) 14 % (22-44); MEAN CORPUSCULAR HEMOGLOBIN 31.6 pg (27.0-34.8); MEAN CORPUSCULAR HGB CONC 33.4 g/dL (32.4-35.8); MEAN PLATELET VOLUME 8.6 fL (7.4-10.4); MONOCYTES % (AUTO) 6 % (2-9); NEUTROPHILS % (AUTO) 80 % (42-75); PLATELET COUNT 247 x10^3/uL (130-400); RED BLOOD COUNT 3.97 x10^6/uL (3.82-5.3); RED CELL DISTRIBUTION WIDTH 13.2 % (9.6-15.2)
[2020-02-17 04:25] LABS: MD NO
[2020-02-17 04:39] VITALS: BP 160/80
[2020-02-17 08:26] LABS: ANION GAP 6 mmol/L (5-15); CALCIUM 8.7 mg/dL (8.5-10.1); CHLORIDE 103 mmol/L (98-107); CREATININE 0.38 mg/dL (0.55-1.02)
[2020-02-17] MEDS ORDERED: DEXAMETHASONE 4 MG/ML, 1ML ONE (08:39)
[2020-02-17] MEDS: CHOLECALCIFEROL 5,000u TAB PO SCH (08:57)
[2020-02-17] MEDS: ASCORBIC ACID 500 MG TABLET PO SCH ×2 (08:57→17:17)
[2020-02-17] MEDS: FAMOTIDINE 20 MG/2 ML IVPush SCH ×2 (08:57→21:20)
[2020-02-17] MEDS: ZINC SULFATE 220 MG CAPSULE PO SCH (08:57)
[2020-02-17] MEDS: ENOXAPARIN 40 MG/0.4 ML SQ SCH (08:58)
[2020-02-17] MEDS: SENNA/DOCUSATE TABLET PO SCH (09:00)
[2020-02-17] MEDS: DEXAMETHASONE 4 MG/ML, 1ML IV SCH (09:04)
[2020-02-17] MEDS: PSYLLIUM PACKET PO SCH (09:30)
[2020-02-17] MEDS: INSULIN GLARGINE 100 UNITS/ML, PEN SQ-INSULIN SCH ×2 (09:36→21:22)
[2020-02-17] MEDS: THIAMINE 100 MG in SODIUM CHLORIDE 0.9% 50 ML IV SCH (21:20)
[2020-02-18] MEDS: INSULIN LISPRO 100 UNITS/ML, PEN SQ-INSULIN SCH ×4 (03:00→21:13)
[2020-02-18 04:00] VITALS: BP 120/64
[2020-02-18 04:38] LABS: BASOPHILS % (AUTO) 1 % (0-1); EOSINOPHILS % (AUTO) 0 % (1-7); LYMPHOCYTES % (AUTO) 12 % (22-44); MEAN CORPUSCULAR HEMOGLOBIN 30.8 pg (27.0-34.8); MEAN CORPUSCULAR HGB CONC 32.9 g/dL (32.4-35.8); MEAN PLATELET VOLUME 8.8 fL (7.4-10.4); MONOCYTES % (AUTO) 6 % (2-9); NEUTROPHILS % (AUTO) 81 % (42-75); PLATELET COUNT 270 x10^3/uL (130-400); RED BLOOD COUNT 4.22 x10^6/uL (3.82-5.3); RED CELL DISTRIBUTION WIDTH 13.2 % (9.6-15.2)
[2020-02-18 05:39] LABS: MD SCAN
[2020-02-18] MEDS ORDERED: DEXAMETHASONE 4 MG/ML, 1ML IV SCH (08:00)
[2020-02-18] MEDS: DEXAMETHASONE 4 MG/ML, 1ML IV SCH (08:13)
[2020-02-18] MEDS: FAMOTIDINE 20 MG/2 ML IVPush SCH ×2 (08:13→21:13)
[2020-02-18] MEDS: ZINC SULFATE 220 MG CAPSULE PO SCH (08:13)
[2020-02-18] MEDS: ASCORBIC ACID 500 MG TABLET PO SCH ×2 (08:13→16:32)
[2020-02-18] MEDS: ENOXAPARIN 40 MG/0.4 ML SQ SCH (08:13)
[2020-02-18] MEDS: CHOLECALCIFEROL 5,000u TAB PO SCH (08:13)
[2020-02-18] MEDS: PSYLLIUM PACKET PO SCH (08:15)
[2020-02-18] MEDS: INSULIN GLARGINE 100 UNITS/ML, PEN SQ-INSULIN SCH ×2 (08:28→21:14)
[2020-02-18] MEDS: FENTANYL PF 100 MCG/2ML IVPush PRN (17:52)
[2020-02-19 04:00] VITALS: BP 115/59
[2020-02-19 04:08] LABS: BASOPHILS % (AUTO) 1 % (0-1); EOSINOPHILS % (AUTO) 1 % (1-7); LYMPHOCYTES % (AUTO) 13 % (22-44); MEAN CORPUSCULAR HEMOGLOBIN 31.1 pg (27.0-34.8); MEAN CORPUSCULAR HGB CONC 33.1 g/dL (32.4-35.8); MEAN PLATELET VOLUME 8.8 fL (7.4-10.4); MONOCYTES % (AUTO) 6 % (2-9); NEUTROPHILS % (AUTO) 79 % (42-75); PLATELET COUNT 239 x10^3/uL (130-400); RED BLOOD COUNT 4.19 x10^6/uL (3.82-5.3); RED CELL DISTRIBUTION WIDTH 13.1 % (9.6-15.2)
[2020-02-19 04:14] LABS: MD NO
[2020-02-19] MEDS: INSULIN LISPRO 100 UNITS/ML, PEN SQ-INSULIN SCH ×4 (04:14→21:00)
[2020-02-19] MEDS ORDERED: DEXAMETHASONE 4 MG/ML, 1ML IVPush ONE (06:00)
[2020-02-19 07:39] LABS: ANION GAP 7 mmol/L (5-15); CALCIUM 8.8 mg/dL (8.5-10.1); CHLORIDE 102 mmol/L (98-107); CREATININE 0.41 mg/dL (0.55-1.02)
[2020-02-19] MEDS: ZINC SULFATE 220 MG CAPSULE PO SCH (08:37)
[2020-02-19] MEDS: FAMOTIDINE 20 MG/2 ML IVPush SCH ×2 (08:38→21:08)
[2020-02-19] MEDS: ASCORBIC ACID 500 MG TABLET PO SCH ×2 (08:38→17:21)
[2020-02-19] MEDS: ENOXAPARIN 40 MG/0.4 ML SQ SCH (08:39)
[2020-02-19] MEDS: CHOLECALCIFEROL 5,000u TAB PO SCH (08:51)
[2020-02-19] MEDS: PSYLLIUM PACKET PO SCH (08:51)
[2020-02-19] MEDS: INSULIN GLARGINE 100 UNITS/ML, PEN SQ-INSULIN SCH ×2 (09:01→21:19)
[2020-02-20 04:00] VITALS: BP 109/60
[2020-02-20] MEDS: INSULIN LISPRO 100 UNITS/ML, PEN SQ-INSULIN SCH ×4 (04:15→21:25)
[2020-02-20] MEDS ORDERED: DEXTROSE 50%, 50ML SYRINGE ONE (04:17)
[2020-02-20 04:30] LABS: BASOPHILS % (AUTO) 1 % (0-1); EOSINOPHILS % (AUTO) 1 % (1-7); LYMPHOCYTES % (AUTO) 19 % (22-44); MEAN CORPUSCULAR HEMOGLOBIN 31.9 pg (27.0-34.8); MEAN CORPUSCULAR HGB CONC 33.7 g/dL (32.4-35.8); MEAN PLATELET VOLUME 8.5 fL (7.4-10.4); MONOCYTES % (AUTO) 7 % (2-9); NEUTROPHILS % (AUTO) 72 % (42-75); PLATELET COUNT 320 x10^3/uL (130-400); RED BLOOD COUNT 4.22 x10^6/uL (3.82-5.3); RED CELL DISTRIBUTION WIDTH 13.2 % (9.6-15.2)
[2020-02-20 04:33] LABS: MD NO
[2020-02-20] MEDS ORDERED: DEXTROSE 50%, 50ML SYRINGE IVPush PRN (05:00)
[2020-02-20] MEDS: CHOLECALCIFEROL 5,000u TAB PO SCH (08:45)
[2020-02-20] MEDS: ASCORBIC ACID 500 MG TABLET PO SCH ×2 (08:45→16:56)
[2020-02-20] MEDS: PSYLLIUM PACKET PO SCH (08:45)
[2020-02-20] MEDS: FAMOTIDINE 20 MG/2 ML IVPush SCH ×2 (08:46→21:25)
[2020-02-20] MEDS: ENOXAPARIN 40 MG/0.4 ML SQ SCH (08:46)
[2020-02-20] MEDS: ZINC SULFATE 220 MG CAPSULE PO SCH (08:46)
[2020-02-20] MEDS: INSULIN GLARGINE 100 UNITS/ML, PEN SQ-INSULIN SCH ×2 (09:00→21:30)
[2020-02-20] MEDS ORDERED: SODIUM CHLORIDE 0.9%, 500ML IVBOLUS ONE (14:30)
[2020-02-20 20:00] VITALS: BP 147/72
[2020-02-21 02:00] VITALS: BP 132/76
[2020-02-21 04:18] VITALS: BP 118/65
[2020-02-21] MEDS: INSULIN LISPRO 100 UNITS/ML, PEN SQ-INSULIN SCH ×4 (04:30→19:55)
[2020-02-21 06:05] LABS: ANION GAP 5 mmol/L (5-15); CALCIUM 8.5 mg/dL (8.5-10.1); CHLORIDE 105 mmol/L (98-107); CREATININE 0.35 mg/dL (0.55-1.02)
[2020-02-21 07:34] VITALS: BP 121/76
[2020-02-21] MEDS: PSYLLIUM PACKET PO SCH (09:00)
[2020-02-21] MEDS: ENOXAPARIN 40 MG/0.4 ML SQ SCH (09:10)
[2020-02-21] MEDS: ZINC SULFATE 220 MG CAPSULE PO SCH (09:11)
[2020-02-21] MEDS: ASCORBIC ACID 500 MG TABLET PO SCH ×2 (09:11→15:52)
[2020-02-21] MEDS: CHOLECALCIFEROL 5,000u TAB PO SCH (09:11)
[2020-02-21] MEDS: FAMOTIDINE 20 MG/2 ML IVPush SCH (09:11)
[2020-02-21] MEDS: INSULIN GLARGINE 100 UNITS/ML, PEN SQ-INSULIN SCH ×2 (09:12→22:17)
--- NOTE | 2020-02-21 10:57 | NUR ---
D/C REC: Home Addendum: 02/21/20 at 1058 by Nellie PALAFOX Amended: Links added.
[2020-02-21 11:58] VITALS: BP 114/80
[2020-02-21 14:52] VITALS: BP 134/74
[2020-02-21 20:00] VITALS: BP 134/83
[2020-02-22 02:00] VITALS: BP 145/80
[2020-02-22] MEDS: INSULIN LISPRO 100 UNITS/ML, PEN SQ-INSULIN SCH ×4 (03:00→20:15)
[2020-02-22] MEDS: CHOLECALCIFEROL 5,000u TAB PO SCH (09:00)
[2020-02-22] MEDS: PSYLLIUM PACKET PO SCH (09:00)
[2020-02-22] MEDS: ZINC SULFATE 220 MG CAPSULE PO SCH (09:13)
[2020-02-22] MEDS: ENOXAPARIN 40 MG/0.4 ML SQ SCH (09:13)
[2020-02-22] MEDS: ASCORBIC ACID 500 MG TABLET PO SCH ×2 (09:13→15:42)
[2020-02-22 09:14] LABS: BASOPHILS % (AUTO) 1 % (0-1); EOSINOPHILS % (AUTO) 2 % (1-7); LYMPHOCYTES % (AUTO) 19 % (22-44); MEAN CORPUSCULAR HEMOGLOBIN 32.1 pg (27.0-34.8); MEAN CORPUSCULAR HGB CONC 33.9 g/dL (32.4-35.8); MONOCYTES % (AUTO) 7 % (2-9); NEUTROPHILS % (AUTO) 71 % (42-75); PLATELET COUNT 197 x10^3/uL (130-400); RED BLOOD COUNT 4.25 x10^6/uL (3.82-5.3); RED CELL DISTRIBUTION WIDTH 13.2 % (9.6-15.2)
[2020-02-22] MEDS: INSULIN GLARGINE 100 UNITS/ML, PEN SQ-INSULIN SCH ×2 (09:14→20:15)
[2020-02-22 09:15] VITALS: BP 140/81
[2020-02-22 09:18] LABS: MD NO
[2020-02-22 13:30] VITALS: BP 135/69
[2020-02-22 20:00] VITALS: BP 134/76
[2020-02-22 21:17] LABS: CLOSTRIDIUM DIFFICILE ANTIGEN NEGATIVE; CLOSTRIDIUM DIFFICILE TOXIN NEGATIVE (Negative)
[2020-02-23 02:00] VITALS: BP 129/80
[2020-02-23] MEDS: INSULIN LISPRO 100 UNITS/ML, PEN SQ-INSULIN SCH ×4 (03:00→21:15)
[2020-02-23 06:37] VITALS: BP 125/75
[2020-02-23] MEDS: CHOLECALCIFEROL 5,000u TAB PO SCH (09:00)
[2020-02-23] MEDS: INSULIN GLARGINE 100 UNITS/ML, PEN SQ-INSULIN SCH ×2 (09:46→21:16)
[2020-02-23] MEDS: ZINC SULFATE 220 MG CAPSULE PO SCH (09:49)
[2020-02-23] MEDS: ASCORBIC ACID 500 MG TABLET PO SCH ×2 (09:51→17:00)
[2020-02-23] MEDS: PSYLLIUM PACKET PO SCH (09:52)
[2020-02-23] MEDS: ENOXAPARIN 40 MG/0.4 ML SQ SCH (09:52)
[2020-02-23 12:01] VITALS: BP 127/81
[2020-02-23 19:02] VITALS: BP 128/86
[2020-02-24 00:07] VITALS: BP 123/80
[2020-02-24] MEDS: INSULIN LISPRO 100 UNITS/ML, PEN SQ-INSULIN SCH ×4 (03:23→20:33)
[2020-02-24 05:50] LABS: BASOPHILS % (AUTO) 1 % (0-1); EOSINOPHILS % (AUTO) 3 % (1-7); LYMPHOCYTES % (AUTO) 23 % (22-44); MEAN CORPUSCULAR HEMOGLOBIN 31.9 pg (27.0-34.8); MEAN CORPUSCULAR HGB CONC 33.5 g/dL (32.4-35.8); MEAN PLATELET VOLUME 7.9 fL (7.4-10.4); MONOCYTES % (AUTO) 9 % (2-9); NEUTROPHILS % (AUTO) 65 % (42-75); PLATELET COUNT 223 x10^3/uL (130-400); RED BLOOD COUNT 4.05 x10^6/uL (3.82-5.3); RED CELL DISTRIBUTION WIDTH 13.5 % (9.6-15.2)
[2020-02-24 05:55] LABS: MD NO
[2020-02-24 06:05] LABS: CHLORIDE 101 mmol/L (98-107)
[2020-02-24 06:09] LABS: ANION GAP 5 mmol/L (5-15); CALCIUM 8.9 mg/dL (8.5-10.1); CREATININE 0.32 mg/dL (0.55-1.02)
[2020-02-24 06:39] VITALS: BP 127/80
[2020-02-24] MEDS: INSULIN GLARGINE 100 UNITS/ML, PEN SQ-INSULIN SCH ×2 (08:50→20:39)
[2020-02-24] MEDS: ASCORBIC ACID 500 MG TABLET PO SCH ×2 (08:56→15:49)
[2020-02-24] MEDS: ENOXAPARIN 40 MG/0.4 ML SQ SCH (08:56)
[2020-02-24] MEDS: ZINC SULFATE 220 MG CAPSULE PO SCH (08:57)
[2020-02-24] MEDS: PSYLLIUM PACKET PO SCH (08:57)
[2020-02-24] MEDS: CHOLECALCIFEROL 5,000u TAB PO SCH (08:57)
[2020-02-24 11:44] VITALS: BP 115/74
[2020-02-24 18:41] VITALS: BP 115/74
[2020-02-25 01:07] VITALS: BP 117/79
[2020-02-25] MEDS: INSULIN LISPRO 100 UNITS/ML, PEN SQ-INSULIN SCH ×4 (03:01→21:30)
[2020-02-25 07:42] VITALS: BP 125/83
[2020-02-25] MEDS: INSULIN GLARGINE 100 UNITS/ML, PEN SQ-INSULIN SCH ×2 (09:00→21:29)
[2020-02-25] MEDS: PSYLLIUM PACKET PO SCH (09:00)
[2020-02-25] MEDS: CHOLECALCIFEROL 5,000u TAB PO SCH (09:00)
[2020-02-25] MEDS: ASCORBIC ACID 500 MG TABLET PO SCH ×2 (11:14→16:59)
[2020-02-25] MEDS: ZINC SULFATE 220 MG CAPSULE PO SCH (11:14)
[2020-02-25] MEDS: ENOXAPARIN 40 MG/0.4 ML SQ SCH (11:14)
[2020-02-25 13:23] VITALS: BP 119/79
[2020-02-25] MEDS: ACETAMINOPHEN 325 MG TABLET PO PRN (18:27)
[2020-02-25 19:27] VITALS: BP 120/76
[2020-02-26 00:56] VITALS: BP 127/79
[2020-02-26] MEDS: INSULIN LISPRO 100 UNITS/ML, PEN SQ-INSULIN SCH ×4 (02:58→21:48)
[2020-02-26 06:37] VITALS: BP 131/85
[2020-02-26] MEDS: ZINC SULFATE 220 MG CAPSULE PO SCH (10:30)
[2020-02-26] MEDS: INSULIN GLARGINE 100 UNITS/ML, PEN SQ-INSULIN SCH ×2 (10:30→22:05)
[2020-02-26] MEDS: ASCORBIC ACID 500 MG TABLET PO SCH ×2 (10:31→17:32)
[2020-02-26] MEDS: ENOXAPARIN 40 MG/0.4 ML SQ SCH (10:31)
[2020-02-26] MEDS: CHOLECALCIFEROL 5,000u TAB PO SCH (10:31)
[2020-02-26] MEDS: PSYLLIUM PACKET PO SCH (10:31)
[2020-02-26 12:49] VITALS: BP 122/81
[2020-02-26 18:47] VITALS: BP 130/79
[2020-02-27 01:38] VITALS: BP 123/79
[2020-02-27] MEDS: INSULIN LISPRO 100 UNITS/ML, PEN SQ-INSULIN SCH ×4 (04:02→21:03)
[2020-02-27 07:00] VITALS: BP 134/85
[2020-02-27] MEDS: CHOLECALCIFEROL 5,000u TAB PO SCH (08:49)
[2020-02-27] MEDS: ASCORBIC ACID 500 MG TABLET PO SCH ×2 (08:49→16:39)
[2020-02-27] MEDS: ZINC SULFATE 220 MG CAPSULE PO SCH (08:49)
[2020-02-27] MEDS: PSYLLIUM PACKET PO SCH (08:50)
[2020-02-27] MEDS: ENOXAPARIN 40 MG/0.4 ML SQ SCH (10:15)
[2020-02-27] MEDS: INSULIN GLARGINE 100 UNITS/ML, PEN SQ-INSULIN SCH ×2 (10:47→21:02)
[2020-02-27 13:32] VITALS: BP 127/85
[2020-02-27 20:10] VITALS: BP 125/74
[2020-02-27] MEDS: ACETAMINOPHEN 325 MG TABLET PO PRN (21:42)
[2020-02-28 01:03] VITALS: BP 127/82
[2020-02-28] MEDS: INSULIN LISPRO 100 UNITS/ML, PEN SQ-INSULIN SCH ×4 (04:00→21:19)
[2020-02-28 07:01] VITALS: BP 148/83
[2020-02-28] MEDS: CHOLECALCIFEROL 5,000u TAB PO SCH (10:13)
[2020-02-28] MEDS: ZINC SULFATE 220 MG CAPSULE PO SCH (10:13)
[2020-02-28] MEDS: ENOXAPARIN 40 MG/0.4 ML SQ SCH (10:14)
[2020-02-28] MEDS: ASCORBIC ACID 500 MG TABLET PO SCH ×2 (10:15→17:41)
[2020-02-28] MEDS: PSYLLIUM PACKET PO SCH (10:15)
[2020-02-28] MEDS: INSULIN GLARGINE 100 UNITS/ML, PEN SQ-INSULIN SCH ×2 (10:15→21:19)
[2020-02-28 14:00] VITALS: BP 125/81
[2020-02-28 19:49] VITALS: BP 138/83
[2020-02-29 01:56] VITALS: BP 130/80
[2020-02-29] MEDS: INSULIN LISPRO 100 UNITS/ML, PEN SQ-INSULIN SCH ×4 (02:51→21:04)
[2020-02-29] MEDS: ASCORBIC ACID 500 MG TABLET PO SCH ×2 (08:00→16:24)
[2020-02-29 08:03] VITALS: BP 121/70
[2020-02-29] MEDS: CHOLECALCIFEROL 5,000u TAB PO SCH (09:00)
[2020-02-29] MEDS: ZINC SULFATE 220 MG CAPSULE PO SCH (09:00)
[2020-02-29] MEDS: ENOXAPARIN 40 MG/0.4 ML SQ SCH (10:02)
[2020-02-29 14:52] VITALS: BP 130/80
[2020-02-29 18:46] VITALS: BP 119/82
[2020-02-29] MEDS: INSULIN GLARGINE 100 UNITS/ML, PEN SQ-INSULIN SCH (21:04)
[2020-03-01 01:38] VITALS: BP 134/83
[2020-03-01] MEDS: INSULIN LISPRO 100 UNITS/ML, PEN SQ-INSULIN SCH ×4 (02:58→21:57)
[2020-03-01 07:54] VITALS: BP 132/80
[2020-03-01] MEDS: CHOLECALCIFEROL 5,000u TAB PO SCH (09:00)
[2020-03-01] MEDS: ASCORBIC ACID 500 MG TABLET PO SCH ×2 (09:38→16:04)
[2020-03-01] MEDS: ENOXAPARIN 40 MG/0.4 ML SQ SCH (09:39)
[2020-03-01] MEDS: INSULIN GLARGINE 100 UNITS/ML, PEN SQ-INSULIN SCH (09:44)
[2020-03-01 12:58] VITALS: BP 126/82
[2020-03-01 20:12] VITALS: BP 134/85
[2020-03-01] MEDS ORDERED: INSULIN GLARGINE 100 UNITS/ML, PEN SQ-INSULIN SCH (21:00)
[2020-03-02 01:03] VITALS: BP 137/83
[2020-03-02] MEDS: INSULIN LISPRO 100 UNITS/ML, PEN SQ-INSULIN SCH ×4 (04:05→20:00)
[2020-03-02 07:15] VITALS: BP 129/85
[2020-03-02] MEDS: CHOLECALCIFEROL 5,000u TAB PO SCH (09:31)
[2020-03-02] MEDS: ASCORBIC ACID 500 MG TABLET PO SCH (09:31)
[2020-03-02] MEDS: ENOXAPARIN 40 MG/0.4 ML SQ SCH (09:31)
[2020-03-02] MEDS: INSULIN GLARGINE 100 UNITS/ML, PEN SQ-INSULIN SCH ×2 (10:21→21:14)
[2020-03-02 13:29] VITALS: BP 125/80
[2020-03-02 18:44] VITALS: BP 142/86
[2020-03-03 00:08] VITALS: BP 130/84
[2020-03-03] MEDS: INSULIN LISPRO 100 UNITS/ML, PEN SQ-INSULIN SCH ×4 (02:38→19:50)
[2020-03-03 08:18] VITALS: BP 132/83
--- NOTE | 2020-03-03 09:01 | NUR ---
Pt remains HONEY THICK LIQUIDS, PUREED diet per VICE PRESIDENT OF OPERATIONS. Signed: 03/03/20 at [address] Addendum: 03/03/20 at [address] Diet modified to NECTAR THICK LIQUIDS, PUREED per [facility] 03/03 @ 1100. Signed: 03/03/20 at [address]
[2020-03-03] MEDS: CHOLECALCIFEROL 5,000u TAB PO SCH (09:36)
[2020-03-03] MEDS: INSULIN GLARGINE 100 UNITS/ML, PEN SQ-INSULIN SCH ×2 (09:37→21:00)
[2020-03-03] MEDS: ENOXAPARIN 40 MG/0.4 ML SQ SCH (09:42)
[2020-03-03] MEDS ORDERED: ENOX40SY4 SQ (10:43)
[2020-03-03] MEDS ORDERED: INSU100I13 SQ-INSULIN (10:43)
[2020-03-03] MEDS ORDERED: INSU100I11 SQ-INSULIN (10:43)
[2020-03-03] MEDS ORDERED: CHOL500045 PO (10:43)
[2020-03-03 14:38] VITALS: BP 127/78
[2020-03-03 18:25] VITALS: BP 115/76
[2020-03-04 00:09] VITALS: BP 132/83
[2020-03-04] MEDS: INSULIN LISPRO 100 UNITS/ML, PEN SQ-INSULIN SCH ×4 (02:53→20:55)
[2020-03-04 05:18] LABS: CREATININE 0.34 mg/dL (0.55-1.02)
[2020-03-04] MEDS: INSULIN GLARGINE 100 UNITS/ML, PEN SQ-INSULIN SCH (09:24)
[2020-03-04 09:27] VITALS: BP 111/74
[2020-03-04] MEDS: CHOLECALCIFEROL 5,000u TAB PO SCH (09:33)
[2020-03-04] MEDS: ENOXAPARIN 40 MG/0.4 ML SQ SCH (09:33)
[2020-03-04 12:45] VITALS: BP 137/82
[2020-03-04 20:56] VITALS: BP 119/76
[2020-03-05 01:03] VITALS: BP 113/82
[2020-03-05] MEDS: INSULIN LISPRO 100 UNITS/ML, PEN SQ-INSULIN SCH ×3 (02:58→14:51)
[2020-03-05 07:53] VITALS: BP 128/78
[2020-03-05] MEDS: ENOXAPARIN 40 MG/0.4 ML SQ SCH (08:15)
[2020-03-05] MEDS: CHOLECALCIFEROL 5,000u TAB PO SCH (08:15)
[2020-03-05] MEDS ORDERED: INSULIN GLARGINE 100 UNITS/ML, PEN SQ-INSULIN SCH (09:00)
[2020-03-05 13:58] VITALS: BP 127/78
== END 2020-03-05 16:26 | DRG 870 ==
LOC: EDBD 15:56 → ED 19:17 → EDIP 20:34 → ICU 02-07 11:10 → CCU 02-13 07:54 → ICU 02-13 08:00 → ORIP 02-16 12:18 → ICU 02-16 12:20 → 4EST 02-23 06:22 → 3N 02-27 22:11
PROVIDERS: ADMIT Internal Medicine; ATTEND Hospitalist
PROC: 02HV33Z Insertion of Infusion Device into Superior Vena Cava, Percutaneous Approach (ICD-10-PCS; principal; 2020-02-06)
PROC: 5A1955Z Respiratory Ventilation, Greater than 96 Consecutive Hours (ICD-10-PCS; 2020-02-06)
PROC: B548ZZA Ultrasonography of Superior Vena Cava, Guidance (ICD-10-PCS; 2020-02-06)
PROC: 0BH17EZ Insertion of Endotracheal Airway into Trachea, Via Natural or Artificial Opening (ICD-10-PCS; 2020-02-06)
PROC: 0T9B70Z Drainage of Bladder with Drainage Device, Via Natural or Artificial Opening (ICD-10-PCS; 2020-02-06)
PROC: XW033E5 Introduction of Remdesivir Anti-infective into Peripheral Vein, Percutaneous Approach, New Technology Group 5 (ICD-10-PCS; 2020-02-07)
DX: A41.89 Other specified sepsis (principal); E43 Unspecified severe protein-calorie malnutrition; J96.01 Acute respiratory failure with hypoxia; J12.89 Other viral pneumonia; U07.1 COVID-19; E87.1 Hypo-osmolality and hyponatremia; E87.4 Mixed disorder of acid-base balance; G93.40 Encephalopathy, unspecified; I47.1 Supraventricular tachycardia; Z99.11 Dependence on respirator [ventilator] status; Z68.28 Body mass index [BMI] 28.0-28.9, adult; E11.649 Type 2 diabetes mellitus with hypoglycemia without coma; E11.65 Type 2 diabetes mellitus with hyperglycemia; E66.9 Obesity, unspecified; I10 Essential (primary) hypertension; R13.10 Dysphagia, unspecified; Z79.4 Long term (current) use of insulin; Z82.49 Family history of ischemic heart disease and other diseases of the circulatory system
CPT/HCPCS: 36415; 36600; 71045; 74230; 80048; 80053; 81001; 82565; 82728; 82803; 82947; 82962; 83036; 83605; 83615; 83735; 84100; 84145; 84478; 84484; 85025; 85379; 85384; 85610; 86140; 87040; 87070; 87081; 87205; 87324; 87635; 93005; 94002; 94003; 94150; G0378; J0456; J0696; J1100; J1650; J2405; J2704; J3010; J3411; J7120; J0330; J1815; J7040; J7050